=== PATIENT | female | born 1965 | race Caucasian/White ===

== ENCOUNTER 2016-10-29 10:47 | Emergency (ER) | payer OTHER ==
[~2016-10-29 10:47] MED LIST: ANUSOL30 GM EXT; CIPRO PO; COLACE PO; NORCO1 TAB 10/3 PO
[2016-10-29] MEDS ORDERED: SYMBICORT INH (10:51)
[2016-10-29] MEDS ORDERED: OMEPRAZOLE40 M1 PO (10:51)
[2016-10-29] MEDS ORDERED: ALBUTEROL17 GM INH (10:51)
[2016-10-29] MEDS ORDERED: MULTIVITAMINS1 EAC2 PO (10:52)
[2016-10-29] MEDS ORDERED: CITRIZINE (10:52)
[2016-10-29] MEDS ORDERED: VITAMIN D31000 UNIT PO (10:52)
[2016-10-29] MEDS ORDERED: VITAMIN B12 (10:52)
[2016-10-29] MEDS ORDERED: DITROPAN5 MG PO (10:53)
[2016-10-29] MEDS ORDERED: AMIODIPINE (10:54)
[2016-10-29] MEDS ORDERED: BUSPIRONE HCL10 M1 PO (10:54)
[2016-10-29] MEDS ORDERED: SERTRALINE HCL100 M1 PO (10:54)
[2016-10-29] MEDS ORDERED: GABAPENTIN300 M2 PO (10:55)
[2016-10-29] MEDS ORDERED: VOLTAREN50 MG PO (10:55)
[2016-10-29] MEDS ORDERED: HYDROCHLOROTHIA25 MG PO (10:55)
[2016-10-29] MEDS ORDERED: SINGULAIR PO (10:55)
[2016-10-29] MEDS ORDERED: FISH OIL 1,0001 EAC4 (10:56)
[2016-10-29] MEDS ORDERED: TOPIRAMATE100 MG PO (10:56)
[2016-10-29] MEDS ORDERED: DESYREL100 MG PO (10:56)
== END 2016-10-29 11:20 | disposition home or self-care (01) ==
LOC: SED 10:47
DX: S00.86XA Insect bite (nonvenomous) of other part of head, initial encounter (principal); L03.211 Cellulitis of face; F32.9 Major depressive disorder, single episode, unspecified; Z88.0 Allergy status to penicillin; Z88.8 Allergy status to other drugs, medicaments and biological substances; Z79.899 Other long term (current) drug therapy; W57.XXXA Bitten or stung by nonvenomous insect and other nonvenomous arthropods, initial encounter
CPT/HCPCS: 99283